=== PATIENT | female | born 1945 | race Caucasian/White ===

== ENCOUNTER 2019-05-18 08:32 | Day surgery (SDC) | payer MEDICARE ==
[~2019-05-18] VITALS: Ht 154.9 cm; Wt 46.9 kg
[~2019-05-18 08:32] MED LIST: Calcium +D & M1 EACH PO; FISH OIL 1,0001 EAC1 PO; GLUCOSAMINE CH1 EAC3 PO; LISI5 PO; Loratadine10 MG PO; Multiple Vitam1 EAC1 PO; VITAMIN D31000 UNI2 PO; ZOLP10 PO
--- NOTE | 2019-05-18 09:21 | NUR ---
05/18/19 0921 Kiera Abreu PT DECLINED LIDOCAINE WITH IV START.
== END 2019-05-18 11:33 | disposition home or self-care (01) ==
LOC: ORSCSDS 08:32
PROVIDERS: Internal Medicine Gastroenterology
PROC: 0DBH8ZX Excision of Cecum, Via Natural or Artificial Opening Endoscopic, Diagnostic (ICD-10-PCS; principal; 2019-05-18 09:45)
PROC: 0DBL8ZX Excision of Transverse Colon, Via Natural or Artificial Opening Endoscopic, Diagnostic (ICD-10-PCS; principal; 2019-05-18 09:45)
PROC: 0DBK8ZX Excision of Ascending Colon, Via Natural or Artificial Opening Endoscopic, Diagnostic (ICD-10-PCS; principal; 2019-05-18 09:45)
DX: Z12.11 Encounter for screening for malignant neoplasm of colon (principal); D12.2 Benign neoplasm of ascending colon; D12.0 Benign neoplasm of cecum; D12.3 Benign neoplasm of transverse colon; K57.30 Diverticulosis of large intestine without perforation or abscess without bleeding; I10 Essential (primary) hypertension; E78.5 Hyperlipidemia, unspecified; Z79.899 Other long term (current) drug therapy
CPT/HCPCS: 88305; J2704; J7120

== ENCOUNTER → 2022-07-06 | Outpatient (CLI) | payer MEDICARE | END | disposition home or self-care (01) | DX: C44.619 Basal cell carcinoma of skin of left upper limb, including shoulder (principal) ==